=== PATIENT | female | born 1995 | race Hispanic/Latino ===

== ENCOUNTER 2020-02-18 11:05 | Inpatient (IN) | payer OTHER ==
[2020-02-18] MEDS ORDERED: BUTORPHANOL 1 MG/ML INJ IV PRN (12:31)
[2020-02-18] MEDS ORDERED: METHYLERGONOVINE 0.2MG/ML AMP IM PRN (12:31)
[2020-02-18] MEDS ORDERED: CARBOPROST TROME 250 MCG/ML IM PRN (12:31)
[2020-02-18] MEDS ORDERED: PROMETHAZINE INJ 25 MG/ML AMP IM PRN (12:31)
[2020-02-18] MEDS ORDERED: Ringers Lactate 1,000 ML IV PRN (12:31)
[2020-02-18 12:52] VITALS: BMI 28.3
[2020-02-18] MEDS ORDERED: OXYTOCIN/LR 20 UNIT/1,000 ML BAG IV SCH ×2 (13:00→17:00)
[2020-02-18] MEDS ORDERED: Ringers Lactate 1,000 ML IV SCH (13:00)
[2020-02-18 13:03] LABS: Absolute Lymphocytes (CBC) 1.5 K/uL (0.7-4.9); Hematocrit 37.1 % (36.0-45.0); Lymphocytes % 19.5 % (15.3-44.8); MPV 8.5 fL (7.6-11.3); RBC Red Blood Cell Count 3.96 M/uL (3.86-4.86)
[2020-02-18] MEDS ORDERED: INFLUENZA VACCINE (for 3y+) 0.5 ML DOSE IMVAC ONE (14:00)
--- NOTE | 2020-02-18 14:21 | PREOPHP ---
Date of Admission: 02/18/2020 History Of Present Illness: A 24-year-old primigravida who said she experienced spontaneous rupture of membranes at 9:30 this morning but only showing up to Labor and Delivery about an hour ago. Indee d she has rupture of membranes, clear fluid. She was 2 cm. She is now 3 cm. João regularly. She is Rh positive, immune to rubella. COVID status pending. Strep status is negative. Family History: Grandparents with hypertension. Otherwise, noncontributory. Allergies: NO ALLERGIES. Medications: No medicines prior to admission other than vitamins. Social History: Does not smoke. Physical Examination: HEENT: Clear. Pupils equal, round, reactive to light and accommodation. Conjunctivae well perfused . No oral, lingual, or buccal lesions. Chest and Lungs: Clear. Heart: Without murmurs, thrills, heaves, or rubs on previous visits. Abdomen: Term. Baby is vertex, 3 cm, 70% effaced, 0 to -1 station. She is on light Pitocin augment ation. Assessment And Plan: Anticipate more rapid progress, once she gets to 5 cm. Full labor talk given. WM/MODL Voice ID: [id number]
[2020-02-18] MEDS ORDERED: FENTANYL CITR 100 MCG/2 ML IV ONE (15:38)
[2020-02-18] MEDS ORDERED: BUPIVACAINE 0.25% PF 30 ML VIAL IV ONE (15:39)
[2020-02-18] MEDS ORDERED: FENTANYL/BUPIVACAINE/NS/PF 200 MCG/100 ML BAG EP ONE (15:39)
[2020-02-18] MEDS ORDERED: miSOPROStoL 100 MCG TAB ONE (16:28)
[2020-02-18] MEDS ORDERED: METHYLERGONOVINE 0.2MG/ML AMP IM ONE (16:45)
[2020-02-18] MEDS ORDERED: LIDOCAINE 1% MPF 30 ML VIAL ONE (16:45)
[2020-02-18] MEDS ORDERED: ACETAMINOPHEN 500 MG TAB PO PRN (16:52)
[2020-02-18] MEDS ORDERED: Oxycodone HCl/Acetaminophen 1 TAB TAB PO PRN ×2 (16:52)
[2020-02-18] MEDS ORDERED: DOCUSATE NA/SENNA CONC 1 TAB PO PRN (16:52)
[2020-02-18] MEDS ORDERED: BISACODYL 10 MG RECTAL SUPP PR PRN (16:52)
[2020-02-18] MEDS ORDERED: DIPHENHYDRAMINE 25 MG TAB/CAP PO PRN (16:52)
[2020-02-18] MEDS: METHYLERGONOVINE 0.2 MG TAB PO SCH ×2 (18:35→22:30)
[2020-02-18] MEDS ORDERED: Ringers Lactate 1,000 ML IV ONE (20:37)
[2020-02-18 22:41] LABS: RPR (Rapid Plasma Reagin) NON-REACT (NON-REACT)
--- NOTE | 2020-02-19 00:27 | OP ---
Surgeon: Too Dobbs MD Halle East is a 24-year-old primigravida, 38 weeks 2 days, ruptured bag of water this morning a t about 09:30, did not come to hospital until approximately lunchtime with mild contractions, 2 cm ve rtex. Started on light Pitocin augmentation. Received Stadol 1 mg IV, Phenergan 25 mg IM. At 6:27, requested epidural, but went to complete and delivered before Anesthesia could perform epidural. Se cond stage of about 20-25 minutes, spontaneous vaginal delivery of a 6 pounds 15 ounces male , Apgars 9 and 9. First degree laceration involving the right labia minora fairly deep, sutured with 2 -0 chromic running locked stitch. A small first degree at the posterior fourchette on the left side, 2-0 chromic running locked stitch as well there. Schultze delivery of the placenta, which was inspe cted and noted to be intact and normal, 400 cc or less blood loss. Tolerated all procedures well. S he is Rh positive, immune to rubella, negative strep screen. COVID status pending. Final Diagnoses: Term intrauterine at 38 weeks and 2 days, spontaneous rupture of membrane s, vaginal delivery. WM/MODL Voice ID: [id number] Report ID: [id number]
[2020-02-19] MEDS: METHYLERGONOVINE 0.2 MG TAB PO SCH (02:30)
[2020-02-19] MEDS: IBUPROFEN 600 MG TAB PO PRN ×2 (03:50→12:20)
--- NOTE | 2020-02-19 08:31 | DS ---
Halle East is a 24-year-old primigravida, 38 weeks 2 days, came in with ruptured membranes. Segundo bsequently, delivered a 6 pounds 15 ounces male infant, Apgars 9 and 9. Local infiltration for repai r of 2 first-degree lacerations, 1 involving the right labia minora, the other involving the left edith e of the introitus. The 1 involving the right labia minora fairly deep, but not bleeding heavily. S chultze delivery of the placenta. Estimated blood loss 400 cc. Mild hypotonus. Given Methergine. Beta strep negative. COVID negative. Rh positive. Immune to rubella. afebrile, ambulat ing and voiding. Lochia is normal. She will be dismissed later today to report back to my office in 6 weeks for followup, to report any temperature elevation of 100 degrees or greater, severe pain, he anayeli bleeding, or any other type of abnormalities. She has had her Tdap and flu shots. She requests no analgesics on dismissal. Final Diagnoses: Term intrauterine at 38 weeks 2 days, spontaneous rupture of membranes, v aginal delivery. WM/MODL Voice ID: [id number] Report ID: [id number]
[2020-02-19 20:00] VITALS: BP 103/64; TEMP 98.9
[2020-02-21 20:18] LABS: HBsAG Nonreactive (Nonreactive)
== END 2020-02-19 19:35 | disposition home or self-care (01) | DRG 807 ==
LOC: L&D 11:05 → 2ND-WC 11:33 → 2ND-WCNRSY 11:33 → UNDOADMIN 11:33
PROVIDERS: ADMIT Specialist; ATTEND Specialist
PROC: 10E0XZZ Delivery of Products of Conception, External Approach (ICD-10-PCS; principal; 2020-02-18)
PROC: 0HQ9XZZ Repair Perineum Skin, External Approach (ICD-10-PCS; 2020-02-18)
PROC: 0HQ9XZZ Repair Perineum Skin, External Approach (ICD-10-PCS; 2020-02-18)
DX: O70.0 First degree perineal laceration during delivery (principal); Z37.0 Single live birth; Z3A.38 38 weeks gestation of pregnancy; Z20.828 Contact with and (suspected) exposure to other viral communicable diseases
CPT/HCPCS: 36415; 85025; 86592; 86850; 86900; 86901; 87340; J0595; J2210; J2550; J2590; J3010; J7120; U0003

== ENCOUNTER 2020-03-19 21:01 | Emergency (ER) | payer OTHER ==
[2020-03-19 23:22] LABS: Hematocrit 35.8 % (36.0-45.0); Lymphocytes % 40.4 % (15.3-44.8); MPV 7.9 fL (7.6-11.3); RBC Red Blood Cell Count 3.85 M/uL (3.86-4.86)
--- NOTE | 2020-03-19 23:32 | ER ---
Nurse's Notes [facility] Name: Halle East Age: 24 yrs Sex: Female : 1995 Arrival Date: 03/19/2020 Time: 21:02 Bed 13 Private MD: Diagnosis: Abnormal uterine and vaginal bleeding, unspecified Presentation: 03/19 21:23 Chief complaint: Patient states: 4 weeks post-, vaginal bleeding started Tuesday dm5 worse today. Delivered vaginal by Dr. Dobbs. Coronavirus screen: Client denies travel out of the [place] in the last 14 days. At this time, the client does not indicate any symptoms associated with coronavirus-19. Ebola Screen: Patient negative for fever greater than or equal to 101.5 degrees Fahrenheit, and additional compatible Ebola Virus Disease symptoms Patient denies exposure to infectious person. Patient denies travel to an Ebola-affected area in the 21 days before illness onset. No symptoms or risks identified at this time. Initial Sepsis Screen: Does the patient meet any 2 criteria? No. Patient's initial sepsis screen is negative. Does the patient have a suspected source of infection? Yes: Other: recent . Risk Assessment: Do you want to hurt yourself or someone else? Patient reports no desire to harm self or others. Onset of symptoms was March 17, 2020. 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 - Social history:: Smoking status: unknown. Screenin:39 Abuse screen: Denies threats or abuse. Nutritional screening: No deficits noted. ea Tuberculosis screening: No symptoms or risk factors identified. Fall Risk None identified. Assessment: 23:40 Reassessment: Patient and/or family updated on plan of care and expected duration. Pain ea level reassessed. Patient is alert, oriented x 3, equal unlabored respirations, skin warm/dry/pink. Discharge instruction given to patient, verbalized the understanding of instruction. Pt left ED ambulatory tolerating well. Vital Signs: 21:23 BP 112 / 72; Pulse 66; Resp 18; Temp 98.7; Pulse Ox 99% on R/A; Height 5 ft. 5 in. dm5 (165.10 cm); Pain 0/10; 21:26 Weight 65.59 kg (M); dm5 23:41 BP 105 / 62; Pulse 63; Resp 18; Pulse Ox 98% on R/A; ea 21:26 Body Mass Index 24.06 (65.59 kg, 165.10 cm) dm5 ED Course: 21:02 Patient arrived in ED. cl3 21:24 Debi Thomas FNP-C is [facility]. kb 21:24 Ren Kim MD is Attending Physician. kb 21:25 Triage completed. dm5 22:09 US Transvaginal Study (Probe) In Process Unspecified. EDMS 22:30 Kain Elizabeth, RN is Primary Nurse. jb4 23:30 Arm band placed on right wrist. ea 23:30 Patient has correct armband on for positive identification. Bed in low position. Call ea light in reach. 23:41 No provider procedures requiring assistance completed. Patient did not have IV access ea during this emergency room visit. Administered Medications: No medications were administered Outcome: 23:31 Discharge ordered by . kb 23:41 Discharged to home ambulatory, with family. ea 23:41 Condition: stable 23:41 Discharge instructions given to patient, Instructed on discharge instructions, follow up and referral plans. Demonstrated understanding of instructions, follow-up care. 23:42 Patient left the ED. ea Signatures: Dispatcher [employer] EDWY Debi Thomas FNP-C FNP-Ckb Markwardt, Deana, RN RN dm5 Bryson, James, RN Christine Parks RN RN ea Lewis, Charde cl3
--- NOTE | 2020-03-19 23:32 | EDPHYS ---
Physician Documentation [facility] Name: Halle East Age: 24 yrs Sex: Female : 1995 Arrival Date: 03/19/2020 Time: 21:02 Bed 13 Private MD: ED Physician Ren Kim HPI: 03/19 23:07 This 24 yrs old Female presents to ER via Ambulatory with complaints of kb Vaginal Bleeding. 23:07 The patient presents with vaginal bleeding that is heavy. Onset: The symptoms/episode kb began/occurred 3 day(s) ago. Modifying factors: The symptoms are alleviated by nothing, the symptoms are aggravated by nothing. Associated signs and symptoms: Pertinent positives: vaginal bleeding. Severity of symptoms: At their worst the symptoms were moderate, in the emergency department the symptoms are unchanged. The patient has not experienced similar symptoms in the past. The patient has not recently seen a physician. Pt reports she is 4 weeks . States she started having vaginal bleeding on Tuesday and it was similar to a normal period. Today she started having a lot of bleeding so that is why she came in. . 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 - Social history:: Smoking status: unknown. ROS: 23:07 Constitutional: Negative for fever, chills, and weight loss, Cardiovascular: Negative kb for chest pain, palpitations, and edema, Respiratory: Negative for shortness of breath, cough, wheezing, and pleuritic chest pain, Abdomen/GI: Negative for abdominal pain, nausea, vomiting, diarrhea, and constipation, Back: Negative for injury and pain, MS/Extremity: Negative for injury and deformity, Skin: Negative for injury, rash, and discoloration, Neuro: Negative for headache, weakness, numbness, tingling, and seizure. 23:07 : Positive for vaginal bleeding. Exam: 23:06 Constitutional: This is a well developed, well nourished patient who is awake, alert, kb and in no acute distress. Head/Face: Normocephalic, atraumatic. Chest/axilla: Normal chest wall appearance and motion. Nontender with no deformity. No lesions are appreciated. Cardiovascular: Regular rate and rhythm with a normal S1 and S2. No gallops, murmurs, or rubs. Normal PMI, no JVD. No pulse deficits. Respiratory: Lungs have equal breath sounds bilaterally, clear to auscultation and percussion. No rales, rhonchi or wheezes noted. No increased work of breathing, no retractions or nasal flaring. Abdomen/GI: Soft, non-tender, with normal bowel sounds. No distension or tympany. No guarding or rebound. No evidence of tenderness throughout. Skin: Warm, dry with normal turgor. Normal color with no rashes, no lesions, and no evidence of cellulitis. MS/ Extremity: Pulses equal, no cyanosis. Neurovascular intact. Full, normal range of motion. Neuro: Awake and alert, GCS 15, oriented to person, place, time, and situation. Cranial nerves II-XII grossly intact. Motor strength 5/5 in all extremities. Sensory grossly intact. Cerebellar exam normal. Normal gait. 23:06 : Pelvic Exam: External exam: is normal, Speculum exam: mild bleeding, bimanual exam reveals normal findings, the family/significant other was present for the exam. Vital Signs: 21:23 BP 112 / 72; Pulse 66; Resp 18; Temp 98.7; Pulse Ox 99% on R/A; Height 5 ft. 5 in. dm5 (165.10 cm); Pain 0/10; 21:26 Weight 65.59 kg (M); dm5 23:41 BP 105 / 62; Pulse 63; Resp 18; Pulse Ox 98% on R/A; ea 21:26 Body Mass Index 24.06 (65.59 kg, 165.10 cm) dm5 MDM: 21:24 Patient medically screened. kb 23:07 Data reviewed: vital signs, nurses notes. Data interpreted: Pulse oximetry: on room air kb is 99 %. Interpretation: normal. 23:29 Counseling: I had a detailed discussion with the patient and/or guardian regarding: the kb historical points, exam findings, and any diagnostic results supporting the discharge/admit diagnosis, lab results, radiology results, the need for outpatient follow up, an OB/Gyne specialist, to return to the emergency department if symptoms worsen or persist or if there are any questions or concerns that arise at home. 03/19 22:22 Order name: CBC with Diff; Complete Time: 23:31 kb 03/19 21:25 Order name: US Transvaginal Study (Probe) kb 03/19 22:22 Order name: IV Start; Complete Time: 23:27 kb 03/19 22:26 Order name: Pelvic Exam Setup; Complete Time: 22:44 kb Administered Medications: No medications were administered Disposition: 03/20 02:10 Co-signature as Attending Physician, Ren Kim MD. rn Disposition: 03/19/20 23:31 Discharged to Home. Impression: Abnormal uterine and vaginal bleeding, unspecified. - Condition is Stable. - Discharge Instructions: Abnormal Uterine Bleeding, [id number]. - Medication Reconciliation Form, Thank You Letter, Antibiotic Education, Prescription Opioid Use form. - Follow up: Emergency Department; When: As needed; Reason: Worsening of condition. Follow up: Private Physician; When: 2 - 3 days; Reason: Recheck today's complaints, Continuance of care, Re-evaluation by your physician. Signatures: Dispatcher [employer] EDPA Debi Thomas, PRESIDING STEWARD-C PRESIDING STEWARD-Shikha Haynes, RN RN dmRen Rothman MD MD rn Antunez, Elena, KASSIDY RN ea Corrections: (The following items were deleted from the chart) 03/19 23:42 23:31 03/19/2020 23:31 Discharged to Home. Impression: Abnormal uterine and vaginal ea bleeding, unspecified. Condition is Stable. Forms are Medication Reconciliation Form, Thank You Letter, Antibiotic Education, Prescription Opioid Use. Follow up: Emergency Department; When: As needed; Reason: Worsening of condition. Follow up: Private Physician; When: 2 - 3 days; Reason: Recheck today's complaints, Continuance of care, Re-evaluation by your physician. kb
[2020-03-19 23:53] VITALS: TEMP 98.7
[2020-03-19 23:54] VITALS: BP 105/62; O2SAT 98
--- NOTE | 2020-03-20 08:29 | RAD REPORT ---
EXAM DESCRIPTION: US - Transvaginal Study Probe - 03/19/2020 10:08 pm CLINICAL HISTORY: VAGINAL BLEEDING Pelvic pain. COMPARISON: No comparisons FINDINGS: The uterus appears mildly enlarged measuring 8.9 x 7.7 x 5.8 cm. This is compatible with p ostpartum uterus. The endometrial stripe measures 11 mm. No evidence of retained products. The left ovary was obscured by bowel gas. The right ovary is normal in size, shape and echotexture wi th normal blood flow. No significant pelvic ascites. IMPRESSION: uterus noted without evidence of retained products of conception.
== END 2020-03-19 23:42 | disposition home or self-care (01) ==
LOC: ER 21:01
DX: O72.1 Other immediate postpartum hemorrhage (principal)
CPT/HCPCS: 36415; 76830; 85025; 99283